=== PATIENT | female | born 1995 | race Caucasian/White ===

== ENCOUNTER 2022-01-02 15:36 | Emergency (ER) | payer SELFPAY ==
[~2022-01-02] VITALS: Ht 162.6 cm; Wt 100.0 kg
[2022-01-02 15:42] VITALS: BP 170/120
== END 2022-01-02 16:18 | disposition left against medical advice (07) ==
LOC: ER 15:36
DX: Z53.21 Procedure and treatment not carried out due to patient leaving prior to being seen by health care provider (principal)